=== PATIENT | male | born 1975 | race African-American/Black ===

== ENCOUNTER 2021-04-18 07:23 | Emergency (ER) | payer OTHER ==
[~2021-04-18] VITALS: Ht 1704.3 cm; Wt 80.7 kg
--- NOTE | 2021-04-18 07:48 | NUR ---
PT IS IN ROOM #2B. DR ENRIQUE EVALUATED THE PT.
--- NOTE | 2021-04-18 08:00 | NUR ---
PT WAS D/C'd TO HOME. D/C INSTRUCTIONS GIVEN TO THE PT BY DR ENRIQUE.
[2021-04-18 08:01] VITALS: BP 130/87
== END 2021-04-18 08:01 | disposition home or self-care (01) ==
LOC: ER 07:23
DX: S86.011A Strain of right Achilles tendon, initial encounter (principal); X50.9XXA Other and unspecified overexertion or strenuous movements or postures, initial encounter; Y93.67 Activity, basketball; Y92.89 Other specified places as the place of occurrence of the external cause
CPT/HCPCS: A4663